=== PATIENT | female | born 2000 | race Two or more races ===

== ENCOUNTER 2018-10-07 15:03 | Emergency (ER) | payer SELFPAY ==
[~2018-10-07] VITALS: Ht 167.6 cm; Wt 140.1 kg
[~2018-10-07 15:03] MED LIST: METF500T17 PO
[2018-10-07 15:32] LABS: BASOPHILS # (AUTO) 0.02 x10^3/uL (0-0.3); BASOPHILS % (AUTO) 0 % (0-1); EOSINOPHILS # (AUTO) 0.04 x10^3/uL (0-0.8); EOSINOPHILS % (AUTO) 1 % (1-7); LYMPHOCYTES # (AUTO) 1.97 x10^3/uL (1-6.1); LYMPHOCYTES % (AUTO) 38 % (22-44); MD NO; MEAN CORPUSCULAR HEMOGLOBIN 27.2 pg (27.0-34.8); MEAN CORPUSCULAR HGB CONC 32.5 g/dL (32.4-35.8); MEAN CORPUSCULAR VOLUME 83.7 fL (80-100); MEAN PLATELET VOLUME 9.5 fL (7.4-10.4); MONOCYTES % (AUTO) 8 % (2-9); NEUTROPHILS # (AUTO) 2.72 x10^3/uL (1.8-8.0); NEUTROPHILS % (AUTO) 53 % (42-75); PLATELET COUNT 232 x10^3/uL (130-400); RED BLOOD COUNT 5.63 x10^6/uL (3.82-5.3); RED CELL DISTRIBUTION WIDTH 13.7 % (9.6-15.2)
[2018-10-07 15:42] LABS: ALANINE AMINOTRANSFERASE 84 U/L (12-78); ANION GAP 8 mmol/L (5-15); CALCIUM 8.6 mg/dL (8.5-10.1); CHLORIDE 108 mmol/L (98-107)
[2018-10-07 15:47] LABS: ALKALINE PHOSPHATASE 68 U/L (45-117); BILIRUBIN,TOTAL 0.7 mg/dL (0.2-1.0); CREATININE 0.69 mg/dL (0.55-1.02)
--- NOTE | 2018-10-07 18:07 | NUR ---
PT TO ROOM FROM LOBBY
[2018-10-07] MEDS ORDERED: ACETAMINOPHEN 500 MG TABLET PO ONE (18:30)
[2018-10-07] MEDS ORDERED: ONDANSETRON ODT 4 MG PO ONE (18:30)
[2018-10-07] MEDS ORDERED: IBUPROFEN 200 MG TABLET PO ONE (18:30)
[2018-10-07] MEDS ORDERED: ACETAMINOPHEN 500 MG TABLET ONE (18:49)
[2018-10-07] MEDS ORDERED: ONDANSETRON ODT 4 MG ONE (18:49)
[2018-10-07] MEDS ORDERED: IBUPROFEN 600 MG TABLET ONE (18:49)
--- NOTE | 2018-10-07 18:56 | NUR ---
PT UNABLE TO URINATE AT THIS TIME. PT MEDICATED PER SEP. 5 RIGHTS VERIFIED PRIOR. 3 P'S ADDRESSED.
--- NOTE | 2018-10-07 19:28 | NUR ---
PT GIVEN MORE PO FLUIDS. WILL ATTEMPT TO URINATE AFTER DRINKING SOME MORE FLUIDS.
--- NOTE | 2018-10-07 19:55 | NUR ---
PT UP TO RESTROOM TO OBTAIN URINE SAMPLE. SAMPLE AMOUNT OF URINE OBTAINED. URINE WALKED TO LAB.
[2018-10-07 20:28] LABS: CULTURE INDICATED? YES; MICROSCOPIC INDICATED
[2018-10-07 20:30] VITALS: BP 121/81
--- NOTE | 2018-10-07 20:45 | NUR ---
RESULTS BACK. PT UP FOR RECHECK.
--- NOTE | 2018-10-07 21:25 | NUR ---
PT GIVEN D/C PAPERWORK. PT VERBALIZED UNDERSTANDING. PT AMBULATED OUT OF DEPARTMENT WITH STEADY GAIT.
== END 2018-10-07 21:30 | disposition home or self-care (01) ==
LOC: ED 20:14
DX: N30.00 Acute cystitis without hematuria (principal); J06.9 Acute upper respiratory infection, unspecified; B97.89 Other viral agents as the cause of diseases classified elsewhere; R11.0 Nausea
CPT/HCPCS: 36415; 71045; 80053; 81001; 83690; 84703; 85025; 87086; 99284; Q0162

== ENCOUNTER 2019-05-30 13:59 | Inpatient (IN) | payer MEDICAID ==
[~2019-05-30] VITALS: Ht 170.2 cm; Wt 151.3 kg
--- NOTE | 2019-05-30 14:26 | NUR ---
PT AMBULATED TO ROOM FROM LOBBY, C/O INCREASED URINARY FREQUENCY, BURNING AND LOW BACK PAIN. NO MEDICAL HX. URINE SENT FROM TRIAGE. CALL LIGHT WITHIN REACH.
[2019-05-30 14:49] LABS: CULTURE INDICATED? YES; MICROSCOPIC INDICATED
[2019-05-30] MEDS ORDERED: ONDANSETRON ODT 4 MG PO ONE (15:00)
[2019-05-30] MEDS ORDERED: IBUPROFEN 600 MG TABLET PO ONE (15:00)
[2019-05-30] MEDS ORDERED: ONDANSETRON ODT 4 MG ONE (15:07)
[2019-05-30] MEDS ORDERED: IBUPROFEN 600 MG TABLET ONE (15:07)
[2019-05-30 15:26] LABS: HCG UR SG 1.026 (1.003-1.030)
[2019-05-30 15:50] LABS: BASOPHILS # (AUTO) 0.01 x10^3/uL (0-0.3); BASOPHILS % (AUTO) 0 % (0-1); EOSINOPHILS % (AUTO) 0 % (1-7); LYMPHOCYTES % (AUTO) 11 % (22-44); MD NO; MEAN CORPUSCULAR HEMOGLOBIN 28.4 pg (27.0-34.8); MEAN CORPUSCULAR HGB CONC 33.2 g/dL (32.4-35.8); MEAN CORPUSCULAR VOLUME 85.6 fL (80-100); MEAN PLATELET VOLUME 9.5 fL (7.4-10.4); MONOCYTES # (AUTO) 0.47 x10^3/uL (0-1.4); MONOCYTES % (AUTO) 5 % (2-9); NEUTROPHILS % (AUTO) 84 % (42-75); PLATELET COUNT 233 x10^3/uL (130-400); RED BLOOD COUNT 5.25 x10^6/uL (3.82-5.3); RED CELL DISTRIBUTION WIDTH 13.4 % (9.6-15.2)
[2019-05-30] MEDS ORDERED: CEFTRIAXONE PMX 1GM/50ML 50 ML IV ONE ×2 (16:00→19:00)
[2019-05-30] MEDS ORDERED: SODIUM CHLORIDE 0.9% 1,000ML IVBOLUS ONE ×2 (16:00)
[2019-05-30] MEDS ORDERED: CEFTRIAXONE PMX 1GM/50ML 50 ML ONE (16:01)
[2019-05-30 16:03] LABS: ALBUMIN 3.9 g/dL (3.4-5.0); ANION GAP 6 mmol/L (5-15); CHLORIDE 104 mmol/L (98-107)
[2019-05-30 16:07] LABS: ALANINE AMINOTRANSFERASE 71 U/L (12-78); ALKALINE PHOSPHATASE 65 U/L (45-117); BILIRUBIN,TOTAL 0.8 mg/dL (0.2-1.0); CREATININE 0.72 mg/dL (0.55-1.02); TOTAL PROTEIN 8.9 g/dL (6.4-8.2)
--- NOTE | 2019-05-30 16:29 | NUR ---
bc to be drawn before starting iv abx
--- NOTE | 2019-05-30 16:51 | NUR ---
PT TO BE ADMITTED
--- NOTE | 2019-05-30 17:19 | NUR ---
REPORT RC'VD FROM YVON MONTE AND CARE ASSUMED. PT CALM, LYING IN GURNEY, DENIES NEEDS AT THIS TIME. RV'WD PLAN FOR ADMISSION, SHE VERBALIZES UNDERSTANDING. TEMP DOWN TO 98.2 AFTER TYLENOL.
[2019-05-30 18:06] VITALS: BP 108/66
[2019-05-30 18:07] VITALS: BP 108/66
[2019-05-30] MEDS ORDERED: TEMAZEPAM 15 MG CAPSULE PO PRN (18:30)
[2019-05-30] MEDS ORDERED: ACETAMINOPHEN 325 MG TABLET PO PRN (18:30)
[2019-05-30] MEDS ORDERED: BISACODYL 10 MG SUPP PR PRN (18:30)
[2019-05-30] MEDS ORDERED: ONDANSETRON 2MG/ML, 2ML IVPush PRN (18:30)
[2019-05-30] MEDS ORDERED: SODIUM CHLORIDE 0.9% 1,000 ML IV SCH (18:39)
[2019-05-30 19:29] VITALS: BP 95/63
[2019-05-30] MEDS ORDERED: ENOXAPARIN 40 MG/0.4 ML SQ SCH (20:00)
[2019-05-31 01:25] VITALS: BP 125/79
[2019-05-31 05:13] LABS: BASOPHILS # (AUTO) 0.02 x10^3/uL (0-0.3); BASOPHILS % (AUTO) 0 % (0-1); EOSINOPHILS # (AUTO) 0.01 x10^3/uL (0-0.8); EOSINOPHILS % (AUTO) 0 % (1-7); LYMPHOCYTES # (AUTO) 1.04 x10^3/uL (1-6.1); LYMPHOCYTES % (AUTO) 16 % (22-44); MD NO; MEAN CORPUSCULAR HEMOGLOBIN 28.3 pg (27.0-34.8); MEAN CORPUSCULAR VOLUME 85.7 fL (80-100); MEAN PLATELET VOLUME 9.6 fL (7.4-10.4); MONOCYTES # (AUTO) 0.48 x10^3/uL (0-1.4); MONOCYTES % (AUTO) 8 % (2-9); NEUTROPHILS # (AUTO) 4.86 x10^3/uL (1.8-8.0); NEUTROPHILS % (AUTO) 76 % (42-75); PLATELET COUNT 207 x10^3/uL (130-400); RED BLOOD COUNT 5.04 x10^6/uL (3.82-5.3); RED CELL DISTRIBUTION WIDTH 13.9 % (9.6-15.2)
[2019-05-31 05:25] LABS: ANION GAP 6 mmol/L (5-15); CALCIUM 8.5 mg/dL (8.5-10.1); CHLORIDE 107 mmol/L (98-107)
[2019-05-31 07:20] VITALS: BP 123/82
[2019-05-31 12:15] VITALS: BP 136/82
[2019-05-31 12:25] VITALS: BP 108/68
[2019-05-31] MEDS ORDERED: ENOXAPARIN 30 MG/0.3 ML SQ SCH (15:30)
[2019-05-31] MEDS ORDERED: CEFTRIAXONE PMX 2GM/50ML 50 ML IV SCH ×2 (16:00)
[2019-05-31] MEDS ORDERED: FLUC150T2 PO (17:16)
[2019-05-31] MEDS ORDERED: CIPR500T3 PO (17:18)
[2019-05-31] MEDS ORDERED: FLU VACC QS2019-20 36MOS UP/PF 0.5 ML IM ONE (17:30)
== END 2019-05-31 19:19 | disposition home or self-care (01) | DRG 872 ==
LOC: ED 15:15 → EDIP 16:53 → 3N 17:55
PROVIDERS: ADMIT Family Medicine; ATTEND Hospitalist
DX: A41.9 Sepsis, unspecified organism (principal); Z68.43 Body mass index [BMI] 50.0-59.9, adult; N10 Acute pyelonephritis; E11.9 Type 2 diabetes mellitus without complications; E66.01 Morbid (severe) obesity due to excess calories; Z79.84 Long term (current) use of oral hypoglycemic drugs; Z83.3 Family history of diabetes mellitus
CPT/HCPCS: 36415; 80048; 80053; 81001; 81025; 83605; 85025; 87040; 87086; 87147; 90686; 96360; 96361; 99291; G0378; J0696; Q0162; J7030